=== PATIENT | female | born 1950 | race Caucasian/White ===

== ENCOUNTER → 2016-12-10 | Outpatient (CLI) | payer MEDICARE, MEDICAID ==
[~2016-12-10] MED LIST: AMIT25TA PO; CALC600T10 PO; CELE-19 PO; CYCL10TA PO; OXYC10TA12 PO; PARO30TA PO; VITMTA PO; VOLT1GEL24 TD; XANA0.5T PO
[2016-12-10 14:47] LABS: BASO % 0.6 % (0.0-1.0); EOS # 0.1 K/mm3 (0.0-0.50); EOS % 1.4 % (0.0-3.0); LARGE UNSTAINED CELL # 0.1 K/mm3 (0.0-0.4); LARGE UNSTAINED CELL % 2.2 % (0.0-4.0); LYMPH # 1.9 K/mm3 (1.5-4.5); LYMPH % 29.6 % (24.0-44.0); MEAN CORPUSCULAR HEMOGLOBIN 31.7 pg (27.0-33.0); MEAN CORPUSCULAR HGB CONC 32.3 g/dl (32.0-36.5); MONO # 0.3 K/mm3 (0.0-0.8); MONO % 4.2 % (0.0-5.0); NEUTROPHILS % 62.1 % (36.0-66.0); PLATELET COUNT, AUTOMATED 206 k/mm3 (150-450); RED CELL DISTRIBUTION WIDTH 12.7 % (11.5-14.5); WHITE BLOOD COUNT 6.4 K/mm3 (4.0-10.0)
[2016-12-10 15:16] LABS: ALBUMIN 3.9 GM/DL (3.2-5.2); ALBUMIN/GLOBULIN RATIO 1.15 (1.00-1.93); ALKALINE PHOSPHATASE 102 U/L (45-117); ALT/SGPT 25 U/L (12-78); ANION GAP 7 MEQ/L (8-16); AST/SGOT 24 U/L (15-37); BILIRUBIN,TOTAL 0.3 MG/DL (0.2-1.0); BLOOD UREA NITROGEN 13 MG/DL (7-18); CALCIUM LEVEL 8.6 MG/DL (8.8-10.2); CARBON DIOXIDE LEVEL 30 MEQ/L (21-32); CHLORIDE LEVEL 105 MEQ/L (98-107); CHOLESTEROL LEVEL 178 MG/DL (<200); CREATININE FOR GFR 0.62 MG/DL (0.55-1.02); GLOMERULAR FILTRATION RATE > 60.0 (>45); GLUCOSE, FASTING 83 MG/DL (80-110); POTASSIUM SERUM 4.3 MEQ/L (3.5-5.1); SODIUM LEVEL 142 MEQ/L (136-145); TOTAL PROTEIN 7.3 GM/DL (6.4-8.2); TRIGLYCERIDES LEVEL 36 MG/DL (<150)
== END ==
LOC: M LAB 13:51
PROVIDERS: ATTEND Emergency Medicine
DX: M13.0 Polyarthritis, unspecified (principal); R03.0 Elevated blood-pressure reading, without diagnosis of hypertension; F43.23 Adjustment disorder with mixed anxiety and depressed mood; Z79.899 Other long term (current) drug therapy

== ENCOUNTER 2018-06-24 09:46 | Day surgery (SDC) | payer MEDICARE, MEDICAID ==
[2018-06-24] MEDS: NS 1,000 ML IV (06:00)
[2018-06-24] MEDS ORDERED: PROPOFOL 200 MG/20 ML VIAL As Ordered (10:21)
[2018-06-24] MEDS ORDERED: LIDOCAINE 2% INJ 100 MG/5 ML SDV (FOR ANES.) As Ordered (10:21)
== END 2018-06-24 12:24 | disposition home or self-care (01) ==
LOC: M OPP 09:46
DX: Z12.11 Encounter for screening for malignant neoplasm of colon (principal); Z80.0 Family history of malignant neoplasm of digestive organs; K64.9 Unspecified hemorrhoids; K63.5 Polyp of colon; K62.1 Rectal polyp; K57.30 Diverticulosis of large intestine without perforation or abscess without bleeding; F17.210 Nicotine dependence, cigarettes, uncomplicated; F41.9 Anxiety disorder, unspecified; F32.9 Major depressive disorder, single episode, unspecified; F44.9 Dissociative and conversion disorder, unspecified; J45.909 Unspecified asthma, uncomplicated; M06.9 Rheumatoid arthritis, unspecified; Z79.891 Long term (current) use of opiate analgesic; Z79.899 Other long term (current) drug therapy; Z91.040 Latex allergy status; Z82.49 Family history of ischemic heart disease and other diseases of the circulatory system; Z80.3 Family history of malignant neoplasm of breast; Z90.710 Acquired absence of both cervix and uterus
CPT/HCPCS: 45385

== ENCOUNTER → 2018-08-07 | Outpatient (CLI) | payer MEDICARE, MEDICAID | LOC: M PAIN 13:15 | DX: M15.9 Polyosteoarthritis, unspecified (principal); M54.5 Low back pain; G89.29 Other chronic pain; E03.9 Hypothyroidism, unspecified; J44.9 Chronic obstructive pulmonary disease, unspecified; E55.9 Vitamin D deficiency, unspecified; F32.9 Major depressive disorder, single episode, unspecified; F41.9 Anxiety disorder, unspecified; M81.0 Age-related osteoporosis without current pathological fracture; F17.200 Nicotine dependence, unspecified, uncomplicated; Z79.899 Other long term (current) drug therapy; Z91.040 Latex allergy status; Z86.2 Personal history of diseases of the blood and blood-forming organs and certain disorders involving the immune mechanism | CPT/HCPCS: G0463 ==

== ENCOUNTER → 2018-08-12 | Outpatient (CLI) | payer MEDICARE, MEDICAID ==
[2018-08-12 16:29] LABS: ALBUMIN 4.1 GM/DL (3.2-5.2); ALBUMIN/GLOBULIN RATIO 1.21 (1.00-1.93); ALKALINE PHOSPHATASE 88 U/L (45-117); ALT/SGPT 23 U/L (12-78); ANION GAP 6 MEQ/L (8-16); AST/SGOT 29 U/L (7-37); BILIRUBIN,TOTAL 0.3 MG/DL (0.2-1.0); BLOOD UREA NITROGEN 11 MG/DL (7-18); CARBON DIOXIDE LEVEL 30 MEQ/L (21-32); CHLORIDE LEVEL 104 MEQ/L (98-107); CHOLESTEROL LEVEL 162 MG/DL (<200); CHOLESTEROL RISK RATIO 1.636 (<5); CREATININE FOR GFR 0.52 MG/DL (0.55-1.30); GLOMERULAR FILTRATION RATE > 60.0 (>45); GLUCOSE, FASTING 73 MG/DL (70-100); HDL CHOLESTEROL 99 MG/DL (>40); LDL CHOLESTEROL 52 MG/DL (<100); NON-HDL-C 63 MG/DL; POTASSIUM SERUM 3.7 MEQ/L (3.5-5.1); SODIUM LEVEL 140 MEQ/L (136-145); TOTAL PROTEIN 7.5 GM/DL (6.4-8.2); TRIGLYCERIDES LEVEL 53 MG/DL (<150)
[2018-08-12 16:31] LABS: TOTAL 25(OH) VITAMIN D 27.2 NG/ML (30.0-100.0)
== END ==
LOC: M LAB 15:13
DX: R03.0 Elevated blood-pressure reading, without diagnosis of hypertension (principal); E04.9 Nontoxic goiter, unspecified; E55.9 Vitamin D deficiency, unspecified; Z79.899 Other long term (current) drug therapy
CPT/HCPCS: 84443

== ENCOUNTER → 2018-08-14 | Outpatient (REF) | payer MEDICARE, MEDICAID ==
[2018-08-14 17:00] LABS: BASO # 0.1 10^3/uL (0.0-0.2); BASO % 0.6 % (0.0-1.0); EOS # 0.1 10^3/uL (0.0-0.50); EOS % 1.4 % (0.0-3.0); HEMATOCRIT 42.9 % (36.0-47.0); HEMOGLOBIN 14.1 g/dl (12.0-15.5); LYMPH # 2.8 10^3/uL (1.5-4.5); LYMPH % 34.6 % (24.0-44.0); MEAN CORPUSCULAR HEMOGLOBIN 33.3 pg (27.0-33.0); MEAN CORPUSCULAR HGB CONC 32.9 g/dl (32.0-36.5); MEAN CORPUSCULAR VOLUME 101.4 fl (80.0-96.0); MONO # 0.5 10^3/uL (0.0-0.8); MONO % 5.9 % (0.0-5.0); NEUTROPHILS # 4.5 10^3/uL (1.8-7.7); NEUTROPHILS % 56.5 % (36.0-66.0); PLATELET COUNT, AUTOMATED 214 10^3/uL (150-450); RED BLOOD COUNT 4.23 10^6/uL (4.00-5.40); RED CELL DISTRIBUTION WIDTH 12.8 % (11.5-14.5)
[2018-08-14 17:18] LABS: ALBUMIN 4.3 GM/DL (3.2-5.2); ALBUMIN/GLOBULIN RATIO 1.39 (1.00-1.93); ALKALINE PHOSPHATASE 96 U/L (45-117); ALT/SGPT 25 U/L (12-78); ANION GAP 5 MEQ/L (8-16); AST/SGOT 27 U/L (7-37); BILIRUBIN,TOTAL 0.5 MG/DL (0.2-1.0); BLOOD UREA NITROGEN 12 MG/DL (7-18); C REACTIVE PROTEIN QUANTITATIV < 0.30 MG/DL (0.00-0.30); CALCIUM LEVEL 9.3 MG/DL (8.8-10.2); CARBON DIOXIDE LEVEL 31 MEQ/L (21-32); CHLORIDE LEVEL 103 MEQ/L (98-107); CREATININE FOR GFR 0.58 MG/DL (0.55-1.30); GLOMERULAR FILTRATION RATE > 60.0 (>45); GLUCOSE, FASTING 75 MG/DL (70-100); POTASSIUM SERUM 4.8 MEQ/L (3.5-5.1); SODIUM LEVEL 139 MEQ/L (136-145); TOTAL PROTEIN 7.4 GM/DL (6.4-8.2); URIC ACID 4.5 MG/DL (2.6-6.0)
[2018-08-14 17:44] LABS: ERYTHROCYTE SEDIMENTATION RATE 6 mm/hr (0-30)
[2018-08-14 17:48] LABS: HEPATITIS B SURFACE ANTIGEN NEGATIVE (NEGATIVE); HIV 1&2 SCREEN CENTAUR NEGATIVE (NEGATIVE); TOTAL 25(OH) VITAMIN D 30.1 NG/ML (30.0-100.0)
[2018-08-14 17:48] LABS: HEPATITIS C VIRUS ABY INDEX < 0.0 INDEX (<0.8)
[2018-08-18 00:06] LABS: CYCLIC CITRULLINATED PEPTIDE 5 units (0-19)
== END ==
LOC: M SFHCLERA 14:00
DX: M19.90 Unspecified osteoarthritis, unspecified site (principal); Z79.899 Other long term (current) drug therapy
CPT/HCPCS: 84550

== ENCOUNTER → 2018-08-14 | Outpatient (CLI) | payer MEDICARE, MEDICAID | LOC: M LRY 14:10 | DX: M25.741 Osteophyte, right hand (principal); M25.742 Osteophyte, left hand; M19.041 Primary osteoarthritis, right hand; M19.042 Primary osteoarthritis, left hand; S63.280A Dislocation of proximal interphalangeal joint of right index finger, initial encounter; S63.282A Dislocation of proximal interphalangeal joint of right middle finger, initial encounter; S63.286A Dislocation of proximal interphalangeal joint of right little finger, initial encounter; S63.246A Subluxation of distal interphalangeal joint of right little finger, initial encounter; S63.243A Subluxation of distal interphalangeal joint of left middle finger, initial encounter; S63.245A Subluxation of distal interphalangeal joint of left ring finger, initial encounter; S63.247A Subluxation of distal interphalangeal joint of left little finger, initial encounter; S63.283A Dislocation of proximal interphalangeal joint of left middle finger, initial encounter; S63.285A Dislocation of proximal interphalangeal joint of left ring finger, initial encounter; X58.XXXA Exposure to other specified factors, initial encounter; Y92.89 Other specified places as the place of occurrence of the external cause; R93.7 Abnormal findings on diagnostic imaging of other parts of musculoskeletal system | CPT/HCPCS: 73030; 84550 ==

== ENCOUNTER → 2019-02-02 | Outpatient (CLI) | payer MEDICARE, MEDICAID ==
[~2019-02-02] MED LIST changes: -CALC600T10 PO; +CALC600T31 PO; -CELE-19 PO; +CELE1CAP4 PO; +VOLT1GEL15 TD; -VOLT1GEL24 TD
--- NOTE | 2019-02-02 14:06 | REPMRS ---
Patient History The patient states she has not had a clinical breast exam in over a year. Patient is postmenopausal and is nulliparous. Family history of breast cancer in paternal grandmother, colorectal cancer in brother, breast cancer at age 50 in sister, breast cancer at age 50 in sister. 3D TOMOSYNTHESIS WAS PERFORMED. Digital Mammo Screening Bilat: February 02, 2019 - Exam #: [id number] Bilateral CC and MLO view(s) were taken. Technologist: Gabby Taylor, Technologist No prior studies available for comparison. FINDINGS: The breast tissue is heterogeneously dense. This may lower the sensitivity of mammography. There is no evidence of cancer on this mammogram. Assessment: BI-RADS/ACR category 2 mammogram. Benign Findings. Recommendation Routine screening mammogram of both breasts in 1 year (for women over age 40). This mammogram was interpreted with the aid of an FDA-approved computer-aided dectection system. Electronically Signed By: Artem Parisi MD 02/02/19 0117
== END ==
LOC: M RAD 13:14
PROVIDERS: ATTEND Family Medicine
DX: Z12.31 Encounter for screening mammogram for malignant neoplasm of breast (principal); M13.0 Polyarthritis, unspecified; M51.36 Other intervertebral disc degeneration, lumbar region; E55.9 Vitamin D deficiency, unspecified; Z80.3 Family history of malignant neoplasm of breast; Z80.0 Family history of malignant neoplasm of digestive organs

== ENCOUNTER → 2019-02-04 | Outpatient (CLI) | payer MEDICARE, MEDICAID ==
[~2019-02-04] MED LIST changes: +CALC600T6 PO; +DRIS50003 PO; +DULO1CAP3 PO; +VENTAER INH
--- NOTE | 2019-02-09 09:14 | DEXA ---
AP SPINE L1 - L4 0.957 -1.9 -0.3 LT FEMUR TOTAL 0.581 -3.4 -2.1 LT NECK 0.591 -3.2 -1.6 RT FEMUR TOTAL 0.610 -3.2 -1.8 RT NECK 0.650 -2.8 -1.8 TOTAL BODY TOTAL RIGHT FOREARM RADIUS 33% 0.470 -4.6 -3.0 COMMENTS: There is low bone density of the spine. There is osteoporosis of the hips. Osteoporosis of the right forearm. FOLLOW-UP: Recommendation for the next bone density exam: 2 years. MISHA
== END ==
LOC: M WHC 12:47
PROVIDERS: ATTEND Family Medicine
DX: Z12.39 Encounter for other screening for malignant neoplasm of breast (principal); M81.0 Age-related osteoporosis without current pathological fracture; M13.0 Polyarthritis, unspecified; M85.88 Other specified disorders of bone density and structure, other site; M51.36 Other intervertebral disc degeneration, lumbar region; E55.9 Vitamin D deficiency, unspecified

== ENCOUNTER 2019-02-09 13:10 | Inpatient (IN) | payer MEDICARE, MEDICAID ==
[~2019-02-09] VITALS: Ht 147.3 cm; Wt 51.7 kg
[~2019-02-09 13:10] MED LIST changes: -CALC600T6 PO; -DRIS50003 PO; -DULO1CAP3 PO; -VENTAER INH
--- NOTE | 2019-02-09 15:02 | REP ---
Left femur: Two views. History: Bony tenderness. Findings: AP and lateral views of the left femur show diffuse osteopenia. No fracture or subluxation is seen. No erosive changes seen. Impression: Negative left femur radiographs. Some diffuse osteopenia. Electronically Signed by Joce Valenzuela MD 02/09/2019 03:12 P
--- NOTE | 2019-02-09 15:06 | REP ---
LEFT HIP: Two views. HISTORY: Bony tenderness. FINDINGS: There is diffuse osteopenia. AP and frog-leg views of the left hip demonstrate smooth rounded femoral head and intact hip joint space. There is no evidence of proximal femur fracture. There is a subtle irregularity of the superior pubic ramus near the acetabulum which should be correlated with clinical signs and symptoms. I cannot exclude a superior pubic ramus fracture in the left hemipelvis. IMPRESSION: Possible left superior pubic ramus fracture. Diffuse osteopenia. No proximal femur fracture seen. Electronically Signed by Joce Valenzuela MD 02/09/2019 03:12 P
[2019-02-09] MEDS ORDERED: NORCO, ANEXSIA 5/325MG TABLET (HYDROcodone/ACETAMINOPHEN) PO ONE (15:30)
[2019-02-09] MEDS ORDERED: MORPHINE 2 MG/ML 1ML SYRINGE (J2270) IV ONE (17:15)
--- NOTE | 2019-02-09 17:16 | REP ---
Clinical: Trauma. Rule out fracture. Technique: Axial noncontrast images through the pelvis with coronal and sagittal re-formations. Findings: There is a very subtle nondisplaced fracture involving the left superior pubic ramus (image 58) as well as minimally displaced fracture of the mid inferior pubic ramus (image 73). A small adjacent hematoma just lateral to the fractured inferior pubic ramus is suggested with subtle gas. Visualized small large bowel is unremarkable. Bladder is normal. Colonic and sigmoid diverticulosis noted. The patient is status post hysterectomy. Impression: Left superior and inferior pubic rami fracture as detailed above. Electronically Signed by Fernando Jeff MD 02/09/2019 05:07 P
[2019-02-09 18:14] LABS: HEMOGLOBIN 14.4 g/dl (12.0-15.5); MEAN CORPUSCULAR HEMOGLOBIN 33.3 pg (27.0-33.0); MEAN CORPUSCULAR HGB CONC 33.5 g/dl (32.0-36.5); MEAN CORPUSCULAR VOLUME 99.5 fl (80.0-96.0); PLATELET COUNT, AUTOMATED 215 10^3/uL (150-450); RED BLOOD COUNT 4.32 10^6/uL (4.00-5.40); WHITE BLOOD COUNT 10.3 10^3/uL (4.0-10.0)
[2019-02-09] MEDS ORDERED: VENTAER INH (18:16)
[2019-02-09] MEDS ORDERED: DRIS50003 PO (18:16)
[2019-02-09] MEDS ORDERED: DULO1CAP3 PO (18:16)
[2019-02-09] MEDS ORDERED: CALC600T6 PO (18:16)
[2019-02-09 18:24] LABS: INR 0.92; PROTHROMBIN TIME 12.5 SECONDS (12.1-14.4)
[2019-02-09 18:34] LABS: BLOOD UREA NITROGEN 8 MG/DL (7-18); CARBON DIOXIDE LEVEL 29 MEQ/L (21-32); CHLORIDE LEVEL 105 MEQ/L (98-107); CREATININE FOR GFR 0.45 MG/DL (0.55-1.30); GLOMERULAR FILTRATION RATE > 60.0 (>45); GLUCOSE, FASTING 100 MG/DL (70-100); POTASSIUM SERUM 4.1 MEQ/L (3.5-5.1); SODIUM LEVEL 139 MEQ/L (136-145)
[2019-02-09] MEDS ORDERED: MOM 30ML SUSPENSION UDC PO PRN (19:00)
--- NOTE | 2019-02-09 21:16 | HPE ---
DATE OF ADMISSION: 02/09/2019 PRIMARY CARE PROVIDER: Seema Jimeenz MD CHIEF COMPLAINT: Left groin pain. HISTORY OF PRESENT ILLNESS: The patient is a 68-year-old female with known osteoporosis who has a history of pathologic fracture after a fall on her left hand years ago as well as fairly significant polyarticular osteoarthritis. Seen previously by rheumatology who tells me that on she was attempting to catch her dogs who were running loose and she was squatting down low to the ground and she rolled to try and catch it. She did not fall but she did have some turning movements and jerkiness trying to catch the dog at which point she immediately felt some pain in her left groin. Since then the pain has progressively worsened to the point that she is no longer able to ambulate far at all. She has difficulty getting up and going to the bathroom. She tells me that she did not have any paresthesia, no bladder or bowel incontinence. No fevers. No chest pressure, shortness of breath, nausea, vomiting or diarrhea. There has been no loss of consciousness or syncopal episodes associated with this. PAST MEDICAL HISTORY: Polyarticular osteoarthritis. Osteoporosis. Depression and anxiety. Hypothyroidism. Retinal detachment. COPD. Lyme disease. ALLERGIES: LATEX. NATURAL RUBBERS. SOCIAL HISTORY: She lives alone. She has 4 dogs and 5 cats. She is an avid smoker, at least 1 pack per day for longer than she wishes to quantify. She tells me that she is [place] and also drinks at least 2 alcoholic beverages a day. FAMILY HISTORY: Noncontributory. REVIEW OF SYSTEMS: Negative other than HPI. PAST SURGICAL HISTORY: Hysterectomy. Tonsil and adenoidectomy. Left neck hematoma extraction. Retinal laser surgery. "Left wrist repair". HOME MEDICATIONS: - calcium with vitamin D 600-400 one tablet daily - vitamin D 50,000 units once a week - Ventolin HFA 108 mcg 2 puffs inhaled every 4 hours as needed shortness of breath - voltaren 2 grams transdermally daily as needed for pain - Xanax 1/2 mg twice a day as needed anxiety - amitriptyline 25 mg by mouth at bedtime - Celebrex 200 mg by mouth every p.m. - cyclobenzaprine 10 mg twice a day as needed spasm - duloxetine 50 mg by mouth daily - multivitamin 1 tablet daily - oxycodone 10 mg every 8 hours as needed pain OBJECTIVE: VITAL SIGNS: Temperature 99.3, heart rate 102, respiratory rate 18, blood pressure 106/71. She is a frail elderly female with chronic bone deformities throughout, laying flat on the stretcher. She does not appear to be in any acute distress. HEENT: Cranial nerves appear grossly intact. She has moist mucous membranes. No elevation of JVP. CARDIOVASCULAR: S1, S2, regular. RESPIRATORY EXAM: Clear. ABDOMEN: Benign. EXTREMITIES: She has chronic deformity of the left wrist from previous fracture. Chronic swollen joints MTP and PCPs bilaterally. Tenderness and decreased range of motion secondary to pain at the left hip. No clubbing, cyanosis or edema. LABORATORY STUDIES: WBC 10.3, hemoglobin 14.4, platelet count 215. Chemistry panel: Sodium 139, potassium 4.1, chloride 105, bicarbonate 29, BUN 8, creatinine 0.4. INR 0.9. Patient did have a pelvic CT which revealed left superior and inferior pubic rami fractures. She did have a femur x-ray that revealed negative left femur radiographs but diffuse osteoporosis. She also had a hip x-ray that revealed possible left superior pubic rami fracture and diffuse osteopenia. ASSESSMENT AND PLAN: This is a 68-year-old female with pubic rami fracture. PROBLEMS: 1. Pubic rami fracture secondary to significant osteoporosis. I will have orthopedic surgery see her. They have verbally over the phone recommended activity as tolerated, provide her with a diet. If we are unable to control her pain will consider pain management consultation tomorrow when that service becomes available once again. Physical therapy (PT)/occupational therapy (OT). Med-surg admission. I think she will probably benefit from superintendent terminal bisphosphonate use in addition to calcium and vitamin D supplementation as well as tobacco cessation. 2. Tobacco abuse. Counseling provided. 3. Alcohol abuse. Monitor for withdrawal symptoms. Provided with thiamine, folic acid and multivitamin and check Clinical [place] Withdrawal Assessment (CIWA). 4. Hypothyroidism. I will check a TSH. She is not on any thyroid replacement therapy at this time. 5. Anxiety. Continue with alprazolam and amitriptyline. The patient is on duloxetine. 6. Chronic osteoarthritic pain. Continue with Celebrex, cyclobenzaprine. 7. COPD. She is at her baseline respiratory status and not requiring any inhalers at this time. DISPOSITION: Admit to the medical-surgical floor.
[2019-02-09 22:00] VITALS: BP 141/96
--- NOTE | 2019-02-09 22:29 | HPE ---
DATE OF ADMISSION: 02/09/2019 CHIEF COMPLAINT: Left groin pain. HISTORY OF PRESENT ILLNESS: The patient states that approximately 5 days ago she was wrestling with her dogs and rolled on her side and felt a sudden pain in her left groin area. Following that, she was able to ambulate but did present to the emergency department today due to persistent pain in the left groin. She has a history significant history for osteoporosis, and she has no other active orthopedic complaints. I was consulted by the inpatient service for evaluation of left superior and inferior pubic rami fractures. PAST MEDICAL HISTORY: As above, also depression, anxiety, chronic obstructive pulmonary disease (COPD), Lyme disease, polyarticular osteoarthritis, hypothyroidism. SOCIAL HISTORY: She does live alone locally. She is a heavy smoker and does drink alcoholic beverages daily. REVIEW OF SYSTEMS: No recent fevers, chills, nausea, vomiting, diarrhea or constipation. PAST SURGICAL HISTORY: Significant for a left wrist open reduction internal fixation, hysterectomy, tonsil and adenoidectomy, left neck hematoma extraction and retinal laser surgery. HOME MEDICATIONS: Home medications are available for review in the medical record. OBJECTIVE: Awake, alert and oriented times three, well-appearing female, in no acute distress. Head is normocephalic, atraumatic. Extraocular muscles are intact. Cardiovascular: Regular rate and rhythm. Pulmonary: No increased work of breathing. She has pain referring to the left groin area. The pelvis is stable. Bilateral lower extremities: There is negative log roll, negative heel tap. She has grossly 5/5 strength with sensation intact to light touch and normal symmetrical reflexes, L2-S1 bilaterally. She is able to move her bilateral knees, feet and ankles in a pain-free manner. Dorsiflexion and plantar flexion of bilateral feet is intact. In the bilateral upper extremities, she is able to move her extremities freely, bring her hands behind her head, and she does have chronic deformities of the fingers and the left wrist as well. Cervical spine range of motion is pain free and at baseline. IMAGING: CT scan of the pelvis shows stable appearing and minimally displaced superior and inferior pubic rami fractures. Chronic degenerative changes also noted in the lumbar spine and bilateral hips. ASSESSMENT: A 68-year-old female with stable pubic rami fractures. PLAN: Given that she has been ambulating on these fractures, clearly they are stable, and I do recommend physical therapy to evaluate and treat with recommendation of weightbearing as tolerated, may require pain management and mobilization aids, such as a walker if required. No surgical intervention is indicated at this time. I do recommend medical management and evaluation for osteoporosis. She may followup in the orthopedic clinic in 1-2 weeks or earlier as needed for any worsening or for any other concerns. All of her questions were answered, and she is satisfied with the treatment at this time. Certainly, if needed, we could reevaluate the patient if she has significant difficulty mobilizing for example. MISHA
[2019-02-09] MEDS: AMITRIPTYLINE 25 MG TAB PO SCH (23:31)
[2019-02-09] MEDS: ENOXAPARIN 40 MG/0.4 ML SYRINGE (J1650) SC SCH (23:31)
[2019-02-09] MEDS: CelecoXIB (CeleBREX) 100 MG CAP PO SCH (23:31)
[2019-02-09] MEDS: oxyCODONE 5MG TAB PO PRN (23:32)
[2019-02-10 06:00] VITALS: BP 138/71
[2019-02-10] MEDS: MULTIVITAMINS/MINERALS THERAP 1 TAB PO SCH (08:50)
[2019-02-10] MEDS: DULoxetine 30 MG CAP (CYMBALTA) PO SCH (08:50)
[2019-02-10] MEDS: CYCLOBENZAPRINE 10 MG TAB PO PRN (08:50)
[2019-02-10] MEDS: FOLIC ACID 1 MG TAB PO SCH (08:50)
[2019-02-10] MEDS: THIAMINE 100 MG TAB PO SCH (08:50)
[2019-02-10] MEDS: oxyCODONE 5MG TAB PO PRN ×2 (08:51→20:33)
[2019-02-10 09:25] LABS: HEMATOCRIT 45.2 % (36.0-47.0); HEMOGLOBIN 14.3 g/dl (12.0-15.5); MEAN CORPUSCULAR HEMOGLOBIN 32.5 pg (27.0-33.0); MEAN CORPUSCULAR HGB CONC 31.6 g/dl (32.0-36.5); MEAN CORPUSCULAR VOLUME 102.7 fl (80.0-96.0); PLATELET COUNT, AUTOMATED 230 10^3/uL (150-450); WHITE BLOOD COUNT 8.1 10^3/uL (4.0-10.0)
[2019-02-10 09:42] LABS: BLOOD UREA NITROGEN 8 MG/DL (7-18); CARBON DIOXIDE LEVEL 32 MEQ/L (21-32); CHLORIDE LEVEL 105 MEQ/L (98-107); CREATININE FOR GFR 0.43 MG/DL (0.55-1.30); GLOMERULAR FILTRATION RATE > 60.0 (>45); GLUCOSE, FASTING 80 MG/DL (70-100); POTASSIUM SERUM 4.3 MEQ/L (3.5-5.1); SODIUM LEVEL 141 MEQ/L (136-145)
[2019-02-10 10:03] VITALS: BP 138/71
[2019-02-10] MEDS: NICOTINE 21MG/24HR 1 EA TRANSDERMAL TD SCH (11:36)
[2019-02-10] MEDS: ALPRAZolam 0.5 MG TAB PO PRN (13:54)
[2019-02-10] MEDS: ACETAMINOPHEN TAB 650MG DOSE (2X325MG) PO PRN (13:54)
[2019-02-10 14:00] VITALS: BP 119/89
--- NOTE | 2019-02-10 15:38 | IPNPDOC ---
Date Seen The patient was seen on 02/10/19. Progress Note SUBJECTIVE: Patient reports feeling better but still significant pain and requesting pain management cons. OBJECTIVE PHYSICAL EXAMINATION: VITAL SIGNS: Please see below. GENERAL: frail elderly woman laying in bed nad HEENT: Cranial nerves grossly intact moist pedis membranes. CARDIOVASCULAR: S1-S2 regular RESPIRATORY: Clear to auscultation bilaterally. ABDOMINAL: Bowel sounds present abdomen soft EXTREMITIES: Chronic deformity of the left wrist and joints of the DIPs and PIPs bilaterally, decreased range of motion of the left hip LABORATORY DATA, IMAGING STUDIES, MICROBIOLOGY: Please see below. DVT prophylaxis ordered?: Lovenox ASSESSMENT AND PLAN: This is a 68-year-old female with pubic rami fracture. PROBLEMS: 1. Pubic rami fracture secondary to significant osteoporosis. Orthopedic surgery consultation greatly appreciated. Continue with. Physical therapy (PT)/occupational therapy (OT). I think she will probably benefit from senior living bisphosphonate use in addition to calcium and vitamin D supplementation as well as tobacco cessation. Pain management consult called 2. Tobacco abuse. Counseling provided. 3. Alcohol abuse. Monitor for withdrawal symptoms. Provided with thiamine, folic acid and multivitamin and check Clinical [place] Withdrawal Assessment (CIWA). 4. Hypothyroidism. Mildly elevated consider rechecking after acute medical illness has resolved in the outpatient setting 5. Anxiety. Continue with alprazolam and amitriptyline. The patient is on duloxetine. 6. Chronic osteoarthritic pain. Continue with Celebrex, cyclobenzaprine. 7. COPD. She is at her baseline respiratory status and not requiring any inhalers at this time. DISPOSITION: Pending PT and pain control VS, I&O, 24H, [facility] Vital Signs/I&O Vital Signs Date Time Temp Pulse Resp B/P (MAP) Pulse Ox O2 Delivery O2 Flow Rate FiO2 02/10/19 14:00 98.6 64 18 119/89 (99) 96 02/09/19 21:34 Room Air I&O- Last 24 Hours up to 6 AM 02/10/19 06:00 Intake Total 600 ml Output Total 1300 ml Balance -700 ml Laboratory Data 24H LABS Laboratory Tests 2 02/09/19 18:03: Nucleated Red Blood Cells % (auto) 0.0, Prothrombin Time 12.5, Prothromb Time International Ratio 0.92, Anion Gap 5L, Glomerular Filtration Rate > 60.0, Blood Urea Nitrogen 8, Creatinine 0.45L, Sodium Level 139, Potassium Level 4.1, Chloride Level 105, Carbon Dioxide Level 29, Calcium Level 9.0 02/10/19 08:08: Nucleated Red Blood Cells % (auto) 0.0, Anion Gap 4L, Glomerular Filtration Rate > 60.0, Blood Urea Nitrogen 8, Creatinine 0.43L, Sodium Level 141, Potassium Level 4.3, Chloride Level 105, Carbon Dioxide Level 32, Calcium Level 9.0, Thyroid Stimulating Hormone (TSH) 6.870H CBC/BMP Laboratory Tests 02/09/19 18:03 Red Blood Count 4.32, Mean Corpuscular Volume 99.5 H, Mean Corpuscular Hemoglobin 33.3 H, Mean Corpuscular Hemoglobin Concent 33.5, Red Cell Distribution Width 12.8, Calcium Level 9.0 02/10/19 08:08 Red Blood Count 4.40, Mean Corpuscular Volume 102.7 H, Mean Corpuscular H emoglobin 32.5, Mean Corpuscular Hemoglobin Concent 31.6 L, Red Cell Distribution Width 12.9, Calcium Level 9.0 ENA YANG MD Feb 10, 2019 15:38
--- NOTE | 2019-02-10 16:55 | CR ---
DATE OF CONSULTATION: 02/09/2019 This patient is a 68-year-old female with a known history of osteoporosis. She was referred to pain management after sustaining left groin pain while twisting yesterday as she was trying to catch her dogs. She denies falling. This patient says her pain today is along her entire back and says the pain in the groin has lessened. She is prescribed oxycodone 10 mg every 8 hours. She was taking up to six tablets last year, given to her by her primary care provider (PCP). She says her PCP does not want her taking large doses, but feels four tablets in 24 hours will help her and she will be able to move around more. On examination, the patient was seated in hospital chair looking very comfortable. She does appear older than stated age. Her heart and lungs were clear. She was not able to get up and move around for further examination. My suggestion would be to increase her oxycodone 10 mg to every 6 hours, maximum daily dose of four tablets in 24 hours. I have advised this patient this is only for her while she is an inpatient and upon discharge, she will need to discuss her pain management with her primary care doctor. Thank you. Kind regards, AMIE [facility]
[2019-02-10 20:30] VITALS: BP 112/83
[2019-02-10] MEDS: guaiFENesin SYRUP 200 MG/10 ML UDC PO PRN (20:32)
[2019-02-10] MEDS: CelecoXIB (CeleBREX) 100 MG CAP PO SCH (20:32)
[2019-02-10] MEDS: AMITRIPTYLINE 25 MG TAB PO SCH (20:33)
[2019-02-10] MEDS: ENOXAPARIN 40 MG/0.4 ML SYRINGE (J1650) SC SCH (20:33)
[2019-02-10 22:00] VITALS: BP 112/83
[2019-02-11] MEDS: ACETAMINOPHEN TAB 650MG DOSE (2X325MG) PO PRN ×2 (01:34→09:32)
[2019-02-11] MEDS: ALPRAZolam 0.5 MG TAB PO PRN (01:34)
[2019-02-11] MEDS: CYCLOBENZAPRINE 10 MG TAB PO PRN (03:27)
[2019-02-11] MEDS: guaiFENesin SYRUP 200 MG/10 ML UDC PO PRN ×3 (03:27→22:01)
[2019-02-11] MEDS: oxyCODONE 5MG TAB PO PRN ×3 (05:35→22:02)
[2019-02-11 06:00] VITALS: BP 120/89
[2019-02-11 06:57] LABS: HEMATOCRIT 40.2 % (36.0-47.0); HEMOGLOBIN 13.1 g/dl (12.0-15.5); MEAN CORPUSCULAR HEMOGLOBIN 32.8 pg (27.0-33.0); MEAN CORPUSCULAR HGB CONC 32.6 g/dl (32.0-36.5); MEAN CORPUSCULAR VOLUME 100.5 fl (80.0-96.0); PLATELET COUNT, AUTOMATED 209 10^3/uL (150-450); WHITE BLOOD COUNT 8.1 10^3/uL (4.0-10.0)
[2019-02-11 07:27] LABS: BLOOD UREA NITROGEN 9 MG/DL (7-18); CALCIUM LEVEL 9.1 MG/DL (8.8-10.2); CARBON DIOXIDE LEVEL 29 MEQ/L (21-32); CHLORIDE LEVEL 109 MEQ/L (98-107); CREATININE FOR GFR 0.44 MG/DL (0.55-1.30); GLOMERULAR FILTRATION RATE > 60.0 (>45); GLUCOSE, FASTING 95 MG/DL (70-100); POTASSIUM SERUM 3.6 MEQ/L (3.5-5.1); SODIUM LEVEL 142 MEQ/L (136-145)
[2019-02-11 08:43] VITALS: BP 113/79
[2019-02-11] MEDS: THIAMINE 100 MG TAB PO SCH (09:32)
[2019-02-11] MEDS: FOLIC ACID 1 MG TAB PO SCH (09:32)
[2019-02-11] MEDS: MULTIVITAMINS/MINERALS THERAP 1 TAB PO SCH (09:33)
[2019-02-11] MEDS: DULoxetine 30 MG CAP (CYMBALTA) PO SCH (09:33)
[2019-02-11] MEDS: NICOTINE 21MG/24HR 1 EA TRANSDERMAL TD SCH (09:34)
[2019-02-11] MEDS ORDERED: ALBUTEROL 90 MCG/ACT 8GM HFA INHALER INH PRN (11:00)
[2019-02-11 14:00] VITALS: BP 127/79
--- NOTE | 2019-02-11 18:39 | IPNPDOC ---
Date Seen The patient was seen on 02/11/19. Progress Note SUBJECTIVE: Patient reports feeling better and wants to ensure she will go home with pain meds when she is ready, otherwise no complaints OBJECTIVE PHYSICAL EXAMINATION: VITAL SIGNS: Please see below. GENERAL: frail elderly woman sitting in a chair HEENT: Cranial nerves grossly intact moist mucous membranes. CARDIOVASCULAR: S1-S2 regular RESPIRATORY: Clear to auscultation bilaterally. ABDOMINAL: Bowel sounds present abdomen soft EXTREMITIES: Chronic deformity of the left wrist and joints of the DIPs and PIPs bilaterally, decreased range of motion of the left hip LABORATORY DATA, IMAGING STUDIES, MICROBIOLOGY: Please see below. DVT prophylaxis ordered?: Lovenox ASSESSMENT AND PLAN: This is a 68-year-old female with pubic rami fracture. PROBLEMS: 1. Pubic rami fracture secondary to significant osteoporosis. Orthopedic surgery consultation greatly appreciated. Continue with. Physical therapy (PT)/occupational therapy (OT). I think she will probably benefit from superintendent container terminal bisphosphonate use in addition to calcium and vitamin D supplementation as well as tobacco cessation. Pain management consult appreciated recommendations followed. 2. Tobacco abuse. Counseling provided. 3. Alcohol abuse. Monitor for withdrawal symptoms none exhibited thus far. Provided with thiamine, folic acid and multivitamin and check Clinical [place] Withdrawal Assessment (CIWA). 4. Hypothyroidism. Mildly elevated consider rechecking after acute medical illness has resolved in the outpatient setting 5. Anxiety. Continue with alprazolam and amitriptyline. The patient is on duloxetine. 6. Chronic osteoarthritic pain. Continue with Celebrex, cyclobenzaprine. 7. COPD. She is at her baseline respiratory status and not requiring any inhalers at this time. DISPOSITION: Pending PT/OT clearance VS, I&O, 24H, [facility] Vital Signs/I&O Vital Signs Date Time Temp Pulse Resp B/P (MAP) Pulse Ox O2 Delivery O2 Flow Rate FiO2 02/11/19 15:30 18 02/11/19 14:00 98.7 79 127/79 (95) 97 02/09/19 21:34 Room Air I&O- Last 24 Hours up to 6 AM 02/11/19 06:00 Intake Total 2040 ml Output Total 600 ml Balance 1440 ml Laboratory Data 24H LABS Laboratory Tests 2 02/11/19 06:39: Nucleated Red Blood Cells % (auto) 0.0, Anion Gap 4L, Glomerular Filtration Rate > 60.0, Blood Urea Nitrogen 9, Creatinine 0.44L, Sodium Level 142, Potassium Level 3.6, Chloride Level 109H, Carbon Dioxide Level 29, Calcium Level 9.1 CBC/BMP Laboratory Tests 02/11/19 06:39 Red Blood Count 4.00, Mean Corpuscular Volume 100.5 H, Mean Corpuscular Hemoglobin 32.8, Mean Corpuscular Hemoglobin Concent 32.6, Red Cell Distribution Width 12.6, Calcium Level 9.1 ENA YANG MD Feb 11, 2019 18:39
[2019-02-11] MEDS: ENOXAPARIN 40 MG/0.4 ML SYRINGE (J1650) SC SCH (20:25)
[2019-02-11] MEDS: CelecoXIB (CeleBREX) 100 MG CAP PO SCH (20:25)
[2019-02-11] MEDS: AMITRIPTYLINE 25 MG TAB PO SCH (20:25)
[2019-02-11 22:00] VITALS: BP 131/99
[2019-02-11 23:05] VITALS: BP 131/99
[2019-02-12 06:00] VITALS: BP 137/88
[2019-02-12 06:10] VITALS: BP 137/88
[2019-02-12 06:43] LABS: HEMATOCRIT 44.1 % (36.0-47.0); MEAN CORPUSCULAR HEMOGLOBIN 32.6 pg (27.0-33.0); MEAN CORPUSCULAR HGB CONC 31.7 g/dl (32.0-36.5); MEAN CORPUSCULAR VOLUME 102.8 fl (80.0-96.0); PLATELET COUNT, AUTOMATED 213 10^3/uL (150-450); RED BLOOD COUNT 4.29 10^6/uL (4.00-5.40); WHITE BLOOD COUNT 6.4 10^3/uL (4.0-10.0)
[2019-02-12 07:14] LABS: BLOOD UREA NITROGEN 7 MG/DL (7-18); CALCIUM LEVEL 9.3 MG/DL (8.8-10.2); CARBON DIOXIDE LEVEL 32 MEQ/L (21-32); CHLORIDE LEVEL 107 MEQ/L (98-107); CREATININE FOR GFR 0.48 MG/DL (0.55-1.30); GLOMERULAR FILTRATION RATE > 60.0 (>45); GLUCOSE, FASTING 92 MG/DL (70-100); SODIUM LEVEL 142 MEQ/L (136-145)
[2019-02-12] MEDS: NICOTINE 21MG/24HR 1 EA TRANSDERMAL TD SCH (07:45)
[2019-02-12] MEDS: THIAMINE 100 MG TAB PO SCH (07:46)
[2019-02-12] MEDS: oxyCODONE 5MG TAB PO PRN ×2 (07:46→13:41)
[2019-02-12] MEDS: FOLIC ACID 1 MG TAB PO SCH (07:46)
[2019-02-12] MEDS: MULTIVITAMINS/MINERALS THERAP 1 TAB PO SCH (07:47)
[2019-02-12] MEDS: DULoxetine 30 MG CAP (CYMBALTA) PO SCH (07:47)
[2019-02-12] MEDS ORDERED: NICO21PAT TD (10:25)
[2019-02-12] MEDS ORDERED: THIA100TA PO (10:25)
[2019-02-12] MEDS ORDERED: FOLI1TAB11 PO (10:25)
[2019-02-12] MEDS ORDERED: ROXI1TAB2 PO (10:31)
[2019-02-12] MEDS: ALPRAZolam 0.5 MG TAB PO PRN (13:41)
--- NOTE | 2019-02-12 18:33 | DSES ---
DATE OF ADMISSION: 02/09/2019 DATE OF DISCHARGE: 02/12/2019 DISCHARGE DIAGNOSIS: Pubic rami fracture. SECONDARY DIAGNOSES: 1. Osteoporosis. 2. Tobacco abuse. 3. Alcohol abuse. 4. Hypothyroidism. 5. Anxiety. 6. Chronic osteoarthritic pain. 7. Chronic obstructive pulmonary disease (COPD). CONSULTATIONS: Pain management, orthopedic surgery. HOSPITAL COURSE: This is a 68-year-old female who was attempting to catch one of her dogs who was running away. She did a sudden movement and nearly fell. Following this, she began to develop left groin pain, which progressively worsened to the point she could no longer walk on it, prompting her to present to the emergency room. She was seen by orthopedic surgery, who recommended no surgical intervention, recommended weight bearing as tolerated, physical therapy (PT), and followup in the orthopedic clinic in 1 to 2 weeks. The patient was seen by pain management, who did titrate up her chronic opiates at home. She previously followed in a pain clinic. She did continue aspirin at an increasing dose during her stay. We deferred pain management to the pain management service. SUBJECTIVE: Today, the patient tells me that she is feeling well and would like to go home. OBJECTIVE: VITAL SIGNS: Temperature 98.1, pulse 90, respiratory rate 19, blood pressure 132/88, oxygen saturation 98% on room air. GENERAL: She is a frail, elderly, female sitting up in a chair. She does not appear in acute distress, awake, alert, oriented times three. She is speaking in complete sentences. HEENT: Cranial nerves II-XII are grossly intact. She has moist mucous membranes. No elevation of central venous pressure. CARDIOVASCULAR: S1, S2. Regular. RESPIRATORY EXAM: Actually fairly clear. ABDOMINAL EXAM: Bowel sounds present. The abdomen is soft and nontender. EXTREMITIES: No clubbing, cyanosis or edema. She has a chronic deformity of the left wrist, as well as DIPs and PIPs bilaterally. LABORATORY STUDIES: WBC 6.4, hemoglobin 14, platelet count 213. Chemistry panel: Sodium 142, potassium 4.0, chloride 107, bicarbonate 32, BUN 7, creatinine 0.4. IMAGING: She did have a pelvic CT that revealed inferior and superior pubic rami fracture. ASSESSMENT AND PLAN: This is a 68-year-old female with inferior and superior pubic rami fracture. 1. Pubic rami fracture secondary to osteoporosis. Orthopedic surgery consulted. The patient will require outpatient followup with them in the next 1 to 2 weeks. She is cleared by physical therapy (PT) and occupational therapy (OT). I think that she would benefit from a ad terminal makeup operator biphosphonate use on the outpatient setting. Continue with calcium and vitamin D. Tobacco cessation. Pain management consult appreciated as well. She will be discharged on these medications for several days only. 2. Tobacco abuse. Cessation again provided. 3. Alcohol abuse. No signs or symptoms of withdrawal while here. Continue thiamine, folic acid, multivitamin. 4. Hypothyroidism. Mildly elevated. Consider rechecking her TSH in the outpatient setting. 5. Anxiety. Continue with alprazolam and amitriptyline, as well as duloxetine. 6. Chronic osteoarthritic pain. She was continued on Celebrex and cyclobenzaprine in addition to her titrated up narcotic dose. 7. Chronic obstructive pulmonary disease (COPD). She was at her baseline respiratory status. DISPOSITION: She is discharged home. She is at her functional baseline. Home care referral placed. She is to followup with her primary care provider in 7 days, orthopedics within 2 weeks. Her activity is as tolerated. Her diet is as prior to admission. MEDICATIONS: At the time of discharge: - folic acid 1 mg daily - Nicoderm patch transdermally daily - Roxicodone 10 mg every 3 hours as needed for pain - thiamine 100 mg daily - Ventolin HFA 280 mcg two puffs inhaled every 4 hours as needed for shortness of breath - Xanax 0.5 mg twice a day - amitriptyline 25 mg at night - calcium and vitamin D 600/400 one tablet daily - Celebrex 200 mg every evening - cyclobenzaprine 10 mg twice a day as needed for spasm - duloxetine 60 mg daily - multivitamin one tablet daily - vitamin D 50,000 units weekly - Voltaren topical 1% gel 2 grams transdermally daily as needed for pain 45 minutes was spent organizing disposition.
== END 2019-02-12 14:35 | disposition home health service (06) | DRG 544 ==
LOC: M ED 13:10 → M ED INP 18:56 → M MS5PR 22:51
PROVIDERS: ADMIT Internal Medicine; ATTEND Internal Medicine
DX: M80.852A Other osteoporosis with current pathological fracture, left femur, initial encounter for fracture (principal); F32.9 Major depressive disorder, single episode, unspecified; F41.9 Anxiety disorder, unspecified; E03.9 Hypothyroidism, unspecified; J44.9 Chronic obstructive pulmonary disease, unspecified; Z79.899 Other long term (current) drug therapy; F10.10 Alcohol abuse, uncomplicated; F17.200 Nicotine dependence, unspecified, uncomplicated; M19.90 Unspecified osteoarthritis, unspecified site

== ENCOUNTER → 2022-04-12 | Outpatient (CLI) | payer MEDICARE, MEDICAID ==
[~2022-04-12] MED LIST changes: -AMIT25TA PO; +AMIT25TA17 PO; +CALC600T17 PO; +CYCL-707 PO; -CYCL10TA PO; +DRIS50003 PO; +DULO1CAP6 PO; +FOLI1TAB11 PO; +NICO21PAT TD; -PARO30TA PO; +PARO30TA65 PO; +ROXI1TAB2 PO; +THIA100TA PO; +VENTAER INH
[2022-04-12 16:13] LABS: GLUCOSE, FASTING 107 MG/DL (70-100)
[2022-04-12 16:14] LABS: ALBUMIN 3.4 GM/DL (3.2-5.2); ALT/SGPT 15 U/L (12-78); BILIRUBIN,TOTAL 0.7 MG/DL (0.2-1.0); BLOOD UREA NITROGEN 8 MG/DL (7-18); CARBON DIOXIDE LEVEL 36 MEQ/L (21-32); CHLORIDE LEVEL 102 MEQ/L (98-107); CHOLESTEROL LEVEL 156 MG/DL (<200); CHOLESTEROL RISK RATIO 1.677 (<5); CREATININE FOR GFR 0.54 MG/DL (0.55-1.30); GLOMERULAR FILTRATION RATE > 60.0 (>39); HDL CHOLESTEROL 93 MG/DL (>40); LDL CHOLESTEROL 54 MG/DL (<100); NON-HDL-C 63 MG/DL; POTASSIUM SERUM 4.1 MEQ/L (3.5-5.1); SODIUM LEVEL 140 MEQ/L (136-145); TOTAL PROTEIN 7.5 GM/DL (6.4-8.2); TRIGLYCERIDES LEVEL 44 MG/DL (<150)
== END ==
LOC: M LAB 14:38
PROVIDERS: ATTEND Nurse Practitioner Family
DX: Z00.00 Encounter for general adult medical examination without abnormal findings (principal)

== ENCOUNTER → 2022-10-28 | Outpatient (REF) | payer MEDICARE, MEDICAID ==
[2022-10-28 17:11] LABS: APPEARANCE, URINE MANUAL CLEAR (CLEAR); COLOR, URINE MANUAL YELLOW (YELLOW)
[2022-10-28 17:12] LABS: BILIRUBIN, URINE MANUAL NEGATIVE (NEGATIVE); BLOOD URINE MANUAL POSITIVE (NEGATIVE); GLUCOSE, URINE (UA) MANUAL NEGATIVE (NEGATIVE); KETONE, URINE MANUAL NEGATIVE (NEGATIVE); LEUKOCYTE ESTERASE, URINE MAN NEGATIVE (NEGATIVE); NITRITE, URINE MANUAL NEGATIVE (NEGATIVE); PROTEIN, URINE MANUAL 1+ mg/dL (NEGATIVE); UROBILINOGEN, URINE MANUAL NORMAL (NORMAL)
[2022-10-28 17:59] LABS: BACTERIA, URINE SMALL AMOUNT; SQUAMOUS EPITHELIAL CELL URINE MOD AMOUNT /hpf (SMALL AMT); TRANSITIONAL EPI CELLS, URINE SMALL AMOUNT /hpf; WBC, URINE 0-1 /hpf (0-3)
[2022-10-28 18:00] LABS: MUCUS, URINE SMALL AMOUNT (NEGATIVE)
== END ==
LOC: M LAB REF 16:32
PROVIDERS: ATTEND Nurse Practitioner Family
DX: Z11.9 Encounter for screening for infectious and parasitic diseases, unspecified (principal)

== ENCOUNTER → 2022-11-18 | Outpatient (REF) | payer MEDICARE, MEDICAID ==
[2022-11-18 17:48] LABS: HEMOGLOBIN A1c 4.6 % (4.0-6.0)
[2022-11-18 18:01] LABS: C REACTIVE PROTEIN QUANTITATIV < 0.40 MG/DL (<1.0); RHEUMATOID FACTOR QUANT 16.3 IU/ML (<14)
[2022-11-18 18:02] LABS: BASO % 0.7 % (0.0-1.0); EOS % 0.5 % (0.0-3.0); HEMATOCRIT 45.7 % (36.0-47.0); LYMPH # 2.8 10^3/uL (1.5-5.0); LYMPH % 45.6 % (24.0-44.0); MEAN CORPUSCULAR HEMOGLOBIN 32.8 pg (27.0-33.0); MEAN CORPUSCULAR HGB CONC 32.8 g/dl (32.0-36.5); MONO # 0.5 10^3/uL (0.0-0.8); MONO % 7.7 % (2.0-8.0); NEUTROPHILS # 2.7 10^3/uL (1.5-8.5); PLATELET COUNT, AUTOMATED 184 10^3/uL (150-450); RED BLOOD COUNT 4.57 10^6/uL (4.00-5.40); WHITE BLOOD COUNT 6.1 10^3/uL (4.0-10.0)
[2022-11-18 18:03] LABS: ALKALINE PHOSPHATASE 105 U/L (46-116); ALT/SGPT 24 U/L (7.0-40); AST/SGOT 43 U/L (<34); BILIRUBIN,TOTAL 0.5 MG/DL (0.3-1.2); BLOOD UREA NITROGEN 8 MG/DL (9-23); CALCIUM LEVEL 9.6 MG/DL (8.3-10.6); CARBON DIOXIDE LEVEL 29 MMOL/L (20-31); CHLORIDE LEVEL 100 MMOL/L (98-107); CREATININE FOR GFR 0.48 MG/DL (0.55-1.30); GLOMERULAR FILTRATION RATE > 60.0 (>39); GLUCOSE, FASTING 75 MG/DL (74-106); POTASSIUM SERUM 4.8 MMOL/L (3.5-5.1); SODIUM LEVEL 135 MMOL/L (136-145); TOTAL PROTEIN 8.2 G/DL (5.7-8.2)
[2022-11-18 18:11] LABS: THYROID STIMULATING HORMONE 3.561 uIU/ML (0.55-4.78)
[2022-11-18 18:15] LABS: TOTAL 25(OH) VITAMIN D 24.8 NG/ML (20.0-100.0)
[2022-11-18 18:29] LABS: ERYTHROCYTE SEDIMENTATION RATE 43 mm/hr (0-30)
[2022-11-18 18:42] LABS: HEPATITIS C VIRUS ABY INDEX 0.1 INDEX (<0.8)
== END ==
LOC: M LAB REF 16:28
PROVIDERS: ATTEND Nurse Practitioner Family
DX: M19.90 Unspecified osteoarthritis, unspecified site (principal); Z11.9 Encounter for screening for infectious and parasitic diseases, unspecified; Z13.228 Encounter for screening for other metabolic disorders

== ENCOUNTER → 2022-12-06 | Outpatient (REF) | payer MEDICARE, MEDICAID | LOC: M LAB REF 15:51 | PROVIDERS: ATTEND Nurse Practitioner Family | DX: R89.9 Unspecified abnormal finding in specimens from other organs, systems and tissues (principal) ==

== ENCOUNTER → 2023-02-04 | Outpatient (CLI) | payer MEDICARE, MEDICAID | LOC: M WHC 12:54 | PROVIDERS: ATTEND Nurse Practitioner Family | DX: M81.0 Age-related osteoporosis without current pathological fracture (principal) ==

== ENCOUNTER → 2023-02-11 | Outpatient (REF) | payer MEDICARE, MEDICAID ==
[2023-02-12 14:14] LABS: APPEARANCE, URINE HAZY (CLEAR); BACTERIA, URINE AUTO NEGATIVE (NEGATIVE); BILIRUBIN, URINE AUTO NEGATIVE (NEGATIVE); BLOOD, URINE BLOOD NEGATIVE (NEGATIVE); COLOR, URINE YELLOW (YELLOW); GLUCOSE, URINE (UA) AUTO NEGATIVE (NEGATIVE); KETONE, URINE AUTO NEGATIVE (NEGATIVE); LEUKOCYTE ESTERASE, URINE AUTO NEGATIVE (NEGATIVE); NITRITE, URINE AUTO NEGATIVE (NEGATIVE); PROTEIN, URINE AUTO NEGATIVE (NEGATIVE); RBC, URINE AUTO 0 /HPF (0-3); SPECIFIC GRAVITY URINE AUTO 1.009 (1.002-1.035); SQUAMOUS EPITHELIAL CELL UR AU 2 /HPF (0-6); UROBILINOGEN, URINE AUTO 0.2 mg/dL (0.0-2.0); WBC, URINE AUTO 0 /HPF (0-3)
[2023-02-12 14:17] LABS: AMPHETAMINES URINE REFLEX NEGATIVE (NEGATIVE); BARBITURATES URINE REFLEX NEGATIVE (NEGATIVE); BENZODIAZEPINES URINE REFLEX NEGATIVE (NEGATIVE); CANNABINOIDS URINE REFLEX NEGATIVE (NEGATIVE); COCAINE METABOLITE URINE REFLE NEGATIVE (NEGATIVE); METHADONE URINE REFLEX NEGATIVE (NEGATIVE); OPIATES URINE REFLEX NEGATIVE (NEGATIVE); PHENCYCLIDINE URINE REFLEX NEGATIVE (NEGATIVE)
== END ==
LOC: M LAB REF 12:20
PROVIDERS: ATTEND Nurse Practitioner Family
DX: G89.29 Other chronic pain (principal); R31.21 Asymptomatic microscopic hematuria

== ENCOUNTER → 2023-04-16 | Outpatient (CLI) | payer MEDICARE, MEDICAID ==
[~2023-04-16] MED LIST changes: +ISOVUE-300 61% 100ML VIAL As Ordered ONE; +LIDOCAINE 1% MDV 20ML VIAL As Ordered ONE; +methylPREDNISolone SUSP 40MG/ML 1ML VIAL (DEPO MEDROL) As Ordered ONE
== END ==
LOC: M RAD 13:24
PROVIDERS: ATTEND Physician Assistant Surgical
DX: M19.011 Primary osteoarthritis, right shoulder (principal); M19.012 Primary osteoarthritis, left shoulder
CPT/HCPCS: 20610; 77002; J1030; Q9967

== ENCOUNTER → 2023-04-24 | Outpatient (REF) | payer MEDICARE ==
[~2023-04-24] MED LIST changes: -ISOVUE-300 61% 100ML VIAL As Ordered ONE; -LIDOCAINE 1% MDV 20ML VIAL As Ordered ONE; -methylPREDNISolone SUSP 40MG/ML 1ML VIAL (DEPO MEDROL) As Ordered ONE
[2023-04-24 16:53] LABS: BASO # 0.1 10^3/uL (0.0-0.2); BASO % 0.9 % (0.0-1.0); EOS # 0.1 10^3/uL (0.0-0.5); EOS % 0.9 % (0.0-3.0); HEMATOCRIT 41.2 % (36.0-47.0); HEMOGLOBIN 14.2 g/dl (12.0-15.5); LYMPH # 2.1 10^3/uL (1.5-5.0); LYMPH % 33.4 % (24.0-44.0); MEAN CORPUSCULAR HEMOGLOBIN 33.8 pg (27.0-33.0); MEAN CORPUSCULAR HGB CONC 34.5 g/dl (32.0-36.5); MEAN CORPUSCULAR VOLUME 98.1 fl (80.0-96.0); MONO # 0.5 10^3/uL (0.0-0.8); MONO % 7.7 % (2.0-8.0); NEUTROPHILS # 3.6 10^3/uL (1.5-8.5); NEUTROPHILS % 56.2 % (36.0-66.0); PLATELET COUNT, AUTOMATED 193 10^3/uL (150-450); WHITE BLOOD COUNT 6.4 10^3/uL (4.0-10.0)
[2023-04-24 17:04] LABS: ERYTHROCYTE SEDIMENTATION RATE 15 mm/hr (0-30)
[2023-04-24 17:24] LABS: ALKALINE PHOSPHATASE 88 U/L (46-116); ALT/SGPT 15 U/L (7.0-40); AST/SGOT 25 U/L (<34); BILIRUBIN,TOTAL 0.7 MG/DL (0.3-1.2); BLOOD UREA NITROGEN 15 MG/DL (9-23); CALCIUM LEVEL 8.5 MG/DL (8.3-10.6); CARBON DIOXIDE LEVEL 27 MMOL/L (20-31); CHLORIDE LEVEL 103 MMOL/L (98-107); CREATININE FOR GFR 0.59 MG/DL (0.55-1.30); GLOMERULAR FILTRATION RATE > 60.0 (>39); GLUCOSE, FASTING 65 MG/DL (74-106); POTASSIUM SERUM 4.3 MMOL/L (3.5-5.1); SODIUM LEVEL 136 MMOL/L (136-145); TOTAL PROTEIN 7.2 G/DL (5.7-8.2)
[2023-04-24 17:25] LABS: C REACTIVE PROTEIN QUANTITATIV < 0.40 MG/DL (<1.0)
[2023-04-24 17:26] LABS: COMPLEMENT C3 93.5 MG/DL (90.0-170.0)
[2023-04-24 17:27] LABS: IMMUNOGLOBULIN A 271.5 MG/DL (40-350); IMMUNOGLOBULIN G 1418 MG/DL (650-1600)
[2023-04-24 17:31] LABS: IMMUNOGLOBULIN M 282.9 MG/DL (50-300)
[2023-04-28 17:08] LABS: COMPLEMENT TOTAL (CH50) 58 U/mL (>41)
== END ==
LOC: M SFHCRHEU 14:44
PROVIDERS: ATTEND Internal Medicine Rheumatology
DX: R76.8 Other specified abnormal immunological findings in serum (principal); M15.0 Primary generalized (osteo)arthritis; Z72.0 Tobacco use

== ENCOUNTER → 2023-05-28 | Outpatient (CLI) | payer MEDICARE, MEDICAID ==
[~2023-05-28] MED LIST changes: +LEXA1TAB PO; +PREG50CA2 PO; +TIZA2TA
== END ==
LOC: M RAD 14:50
PROVIDERS: ATTEND Pain Medicine Interventional Pain Medicine
DX: M25.511 Pain in right shoulder (principal); M25.512 Pain in left shoulder

== ENCOUNTER → 2023-09-11 | Outpatient (REF) | payer MEDICARE, MEDICAID ==
[~2023-09-11] MED LIST changes: -AMIT25TA17 PO; +AMIT25TA19 PO; -PREG50CA2 PO; +PREG50CA3 PO
[2023-09-11 17:33] LABS: BASO % 0.4 % (0.0-1.0); EOS # 0.1 10^3/uL (0.0-0.5); HEMOGLOBIN 14.9 g/dl (12.0-15.5); LYMPH # 2.3 10^3/uL (1.5-5.0); LYMPH % 34.5 % (24.0-44.0); MEAN CORPUSCULAR HEMOGLOBIN 33.9 pg (27.0-33.0); MEAN CORPUSCULAR HGB CONC 34.7 g/dl (32.0-36.5); MEAN CORPUSCULAR VOLUME 97.7 fl (80.0-96.0); MONO # 0.7 10^3/uL (0.0-0.8); MONO % 10.2 % (2.0-8.0); NEUTROPHILS # 3.6 10^3/uL (1.5-8.5); NEUTROPHILS % 53.5 % (36.0-66.0); PLATELET COUNT, AUTOMATED 215 10^3/uL (150-450); WHITE BLOOD COUNT 6.7 10^3/uL (4.0-10.0)
[2023-09-11 17:56] LABS: BLOOD UREA NITROGEN 8 MG/DL (9-23); CALCIUM LEVEL 9.7 MG/DL (8.3-10.6); CARBON DIOXIDE LEVEL 26 MMOL/L (20-31); CHLORIDE LEVEL 101 MMOL/L (98-107); CREATININE FOR GFR 0.47 MG/DL (0.55-1.30); GLOMERULAR FILTRATION RATE > 60.0 (>39); GLUCOSE, FASTING 60 MG/DL (74-106); POTASSIUM SERUM 4.6 MMOL/L (3.5-5.1); SODIUM LEVEL 134 MMOL/L (136-145)
== END ==
LOC: M LAB REF 16:39
PROVIDERS: ATTEND Nurse Practitioner Family
DX: R19.7 Diarrhea, unspecified (principal)

== ENCOUNTER → 2024-02-04 | Outpatient (REF) | payer MEDICARE ==
[2024-02-04 15:49] LABS: APPEARANCE, URINE HAZY (CLEAR); BACTERIA, URINE AUTO NEGATIVE (NEGATIVE); BILIRUBIN, URINE AUTO NEGATIVE (NEGATIVE); BLOOD, URINE BLOOD NEGATIVE (NEGATIVE); COLOR, URINE YELLOW (YELLOW); GLUCOSE, URINE (UA) AUTO NEGATIVE (NEGATIVE); KETONE, URINE AUTO NEGATIVE (NEGATIVE); LEUKOCYTE ESTERASE, URINE AUTO NEGATIVE (NEGATIVE); MUCUS, URINE SMALL (NEGATIVE); NITRITE, URINE AUTO NEGATIVE (NEGATIVE); PROTEIN, URINE AUTO 1+ mg/dL (NEGATIVE); RBC, URINE AUTO 1 /HPF (0-3); SPECIFIC GRAVITY URINE AUTO 1.021 (1.002-1.035); SQUAMOUS EPITHELIAL CELL UR AU 10 /HPF (0-6); UROBILINOGEN, URINE AUTO 0.2 mg/dL (0.0-2.0); WBC, URINE AUTO 2 /HPF (0-3)
[2024-02-04 15:52] LABS: BASO # 0.1 10^3/uL (0.0-0.2); BASO % 0.9 % (0.0-1.0); EOS # 0.1 10^3/uL (0.0-0.5); EOS % 1.2 % (0.0-3.0); HEMATOCRIT 44.6 % (36.0-47.0); HEMOGLOBIN 15.2 g/dl (12.0-15.5); LYMPH # 2.1 10^3/uL (1.5-5.0); LYMPH % 30.5 % (24.0-44.0); MEAN CORPUSCULAR HEMOGLOBIN 33.7 pg (27.0-33.0); MEAN CORPUSCULAR HGB CONC 34.1 g/dl (32.0-36.5); MEAN CORPUSCULAR VOLUME 98.9 fl (80.0-96.0); MONO # 0.6 10^3/uL (0.0-0.8); MONO % 8.5 % (2.0-8.0); NEUTROPHILS % 58.3 % (36.0-66.0); PLATELET COUNT, AUTOMATED 237 10^3/uL (150-450); RED BLOOD COUNT 4.51 10^6/uL (4.00-5.40); WHITE BLOOD COUNT 6.9 10^3/uL (4.0-10.0)
[2024-02-04 15:57] LABS: ERYTHROCYTE SEDIMENTATION RATE 28 mm/hr (0-30)
[2024-02-04 16:21] LABS: CREATININE,RANDOM URINE 89.2 MG/DL
[2024-02-04 16:24] LABS: C REACTIVE PROTEIN QUANTITATIV < 0.40 MG/DL (<1.0)
[2024-02-04 17:09] LABS: COMPLEMENT C3 119.4 MG/DL (90.0-170.0); COMPLEMENT C4 20.2 MG/DL (12-36)
[2024-02-04 17:17] LABS: ALKALINE PHOSPHATASE 104 U/L (46-116); ALT/SGPT 17 U/L (7.0-40); AST/SGOT 23 U/L (<34); BILIRUBIN,TOTAL 0.5 MG/DL (0.3-1.2); BLOOD UREA NITROGEN 15 MG/DL (9-23); CALCIUM LEVEL 9.5 MG/DL (8.3-10.6); CARBON DIOXIDE LEVEL 29 MMOL/L (20-31); CHLORIDE LEVEL 104 MMOL/L (98-107); CREATININE FOR GFR 0.52 MG/DL (0.55-1.30); GLOMERULAR FILTRATION RATE > 60.0 (>39); GLUCOSE, FASTING 84 MG/DL (74-106); POTASSIUM SERUM 4.1 MMOL/L (3.5-5.1); SODIUM LEVEL 136 MMOL/L (136-145); TOTAL PROTEIN 7.4 G/DL (5.7-8.2)
== END ==
LOC: M SFHCADAM 12:50
PROVIDERS: ATTEND Internal Medicine Rheumatology
DX: R76.8 Other specified abnormal immunological findings in serum (principal); M15.0 Primary generalized (osteo)arthritis; Z72.0 Tobacco use; R76.0 Raised antibody titer

== ENCOUNTER → 2024-09-06 | Outpatient (REF) | payer MEDICARE, MEDICAID ==
[2024-09-06 18:19] LABS: BASO % 0.7 % (0.0-1.0); EOS # 0.1 10^3/uL (0.0-0.5); EOS % 1.7 % (0.0-3.0); HEMATOCRIT 46.5 % (36.0-47.0); HEMOGLOBIN 15.2 g/dl (12.0-15.5); LYMPH # 1.4 10^3/uL (1.5-5.0); LYMPH % 26.7 % (24.0-44.0); MEAN CORPUSCULAR HEMOGLOBIN 32.3 pg (27.0-33.0); MEAN CORPUSCULAR HGB CONC 32.7 g/dl (32.0-36.5); MEAN CORPUSCULAR VOLUME 98.9 fl (80.0-96.0); MONO # 0.6 10^3/uL (0.0-0.8); MONO % 10.7 % (2.0-8.0); NEUTROPHILS # 3.2 10^3/uL (1.5-8.5); NEUTROPHILS % 59.5 % (36.0-66.0); PLATELET COUNT, AUTOMATED 227 10^3/uL (150-450); WHITE BLOOD COUNT 5.4 10^3/uL (4.0-10.0)
[2024-09-06 18:43] LABS: ALKALINE PHOSPHATASE 106 U/L (35-104); ALT/SGPT 15 U/L (7.0-40); AST/SGOT 30 U/L (<34); BILIRUBIN,TOTAL 0.5 MG/DL (0.3-1.2); BLOOD UREA NITROGEN 13 MG/DL (9-23); CALCIUM LEVEL 9.8 MG/DL (8.3-10.6); CARBON DIOXIDE LEVEL 29 MMOL/L (20-31); CHLORIDE LEVEL 102 MMOL/L (98-107); CHOLESTEROL LEVEL 205 MG/DL (<200); CHOLESTEROL RISK RATIO 2.15 (<5); CREATININE FOR GFR 0.68 MG/DL (0.55-1.30); GLOMERULAR FILTRATION RATE > 60.0 (>39); GLUCOSE, FASTING 109 MG/DL (74-106); POTASSIUM SERUM 4.2 MMOL/L (3.5-5.1); SODIUM LEVEL 137 MMOL/L (136-145); TOTAL PROTEIN 7.7 G/DL (5.7-8.2); TRIGLYCERIDES LEVEL 80 MG/DL (<150)
[2024-09-06 18:45] LABS: THYROID STIMULATING HORMONE 4.569 uIU/ML (0.55-4.78)
[2024-09-06 19:01] LABS: HEMOGLOBIN A1c 4.8 % (4.0-6.0)
== END ==
LOC: M LABDRWAD 17:38
PROVIDERS: ATTEND Nurse Practitioner Family
DX: E03.9 Hypothyroidism, unspecified (principal); E66.3 Overweight

== ENCOUNTER → 2025-02-03 | Outpatient (REF) | payer MEDICARE, MEDICAID ==
[2025-02-03 18:47] LABS: BASO % 0.6 % (0.0-1.0); EOS % 0.6 % (0.0-3.0); HEMATOCRIT 45.7 % (36.0-47.0); HEMOGLOBIN 15.1 g/dl (12.0-15.5); LYMPH # 1.8 10^3/uL (1.5-5.0); LYMPH % 26.8 % (24.0-44.0); MEAN CORPUSCULAR VOLUME 99.8 fl (80.0-96.0); MONO # 0.5 10^3/uL (0.0-0.8); MONO % 7.4 % (2.0-8.0); NEUTROPHILS # 4.4 10^3/uL (1.5-8.5); NEUTROPHILS % 64.2 % (36.0-66.0); PLATELET COUNT, AUTOMATED 240 10^3/uL (150-450); RED BLOOD COUNT 4.58 10^6/uL (4.00-5.40); WHITE BLOOD COUNT 6.9 10^3/uL (4.0-10.0)
[2025-02-03 19:10] LABS: ALBUMIN 4.2 G/DL (3.2-5.2); ALKALINE PHOSPHATASE 108 U/L (35-104); ALT/SGPT 20 U/L (7.0-40); AST/SGOT 32 U/L (<34); BILIRUBIN,DIRECT 0.2 MG/DL (<0.4); BILIRUBIN,TOTAL 0.5 MG/DL (0.3-1.2); BLOOD UREA NITROGEN 8 MG/DL (9-23); CALCIUM LEVEL 10.1 MG/DL (8.3-10.6); CARBON DIOXIDE LEVEL 32 MMOL/L (20-31); CHLORIDE LEVEL 96 MMOL/L (98-107); CHOLESTEROL LEVEL 181 MG/DL (<200); CHOLESTEROL RISK RATIO 1.72 (<5); CREATININE FOR GFR 0.45 MG/DL (0.55-1.30); GLOMERULAR FILTRATION RATE > 60.0 (>39); GLUCOSE, FASTING 90 MG/DL (74-106); LDL CHOLESTEROL 58.8 MG/DL (<100); POTASSIUM SERUM 4.3 MMOL/L (3.5-5.1); SODIUM LEVEL 136 MMOL/L (136-145); TOTAL PROTEIN 7.9 G/DL (5.7-8.2); TRIGLYCERIDES LEVEL 86 MG/DL (<150)
== END ==
LOC: M LAB REF 17:28
PROVIDERS: ATTEND Nurse Practitioner Family
DX: Z01.818 Encounter for other preprocedural examination (principal); R41.3 Other amnesia; Z79.899 Other long term (current) drug therapy

== ENCOUNTER → 2025-03-03 | Day surgery (SDC) | payer MEDICARE, MEDICAID ==
[~2025-03-03] VITALS: Ht 137.2 cm; Wt 49.4 kg
[~2025-03-03] MED LIST changes: +CELE100C PO; +EQL50TAB2 PO; +MIDAZOLAM INJ 2MG/2ML VIAL As Ordered ONE; +OMEGCAP9 PO; +PHENYLEPHRINE 10% OPHTH SOL 5ML OS PRN; +THERTAB52 PO; +fentaNYL 100 MCG/2 ML INJECTION As Ordered ONE
[2025-03-03] MEDS: BSS IRRIG/VANCO(10MG)/TOBRA(5MG)/EPINEPH(1:1000-0.5CC)500ML BAG-ORONLY As Ordered ONE (06:50)
[2025-03-03] MEDS: OFLOXACIN 0.3 % (OCUFLOX) OPTH SOL 5ML OS ONE (09:38)
[2025-03-03] MEDS: LIDOCAINE 3.5 % 1ML OPHTH TOPICAL GEL OU ONE (09:39)
[2025-03-03] MEDS: TROPICAMIDE 1% OPHTH SOLN 15ML OS SCH (09:39)
[2025-03-03] MEDS: PHENYLEPHRINE 2.5% OPHTH SOL 2ML OS SCH (09:39)
[2025-03-03] MEDS: CYCLOPENTOLATE 1% OPHTH SOLN 2ML BTL OS SCH (09:39)
[2025-03-03] MEDS: LIDOCAINE 1% SDV 5ML VIAL As Ordered ONE (10:39)
[2025-03-03] MEDS: CEFUROXIME 1MG/0.1ML INTRACAMERAL INJ As Ordered ONE (10:39)
[2025-03-03 10:55] VITALS: BP 134/88; TEMP 98.2; O2SAT 95
== END | disposition home or self-care (01) ==
LOC: M SDC 08:52
PROVIDERS: ATTEND Ophthalmology
DX: H25.12 Age-related nuclear cataract, left eye (principal); I10 Essential (primary) hypertension; J44.9 Chronic obstructive pulmonary disease, unspecified; E03.9 Hypothyroidism, unspecified; E04.1 Nontoxic single thyroid nodule; Z86.73 Personal history of transient ischemic attack (TIA), and cerebral infarction without residual deficits; Z79.899 Other long term (current) drug therapy; Z88.8 Allergy status to other drugs, medicaments and biological substances; Z91.040 Latex allergy status; F17.210 Nicotine dependence, cigarettes, uncomplicated; Z90.710 Acquired absence of both cervix and uterus; F41.9 Anxiety disorder, unspecified; F32.A Depression, unspecified
CPT/HCPCS: 66984; J0697; J2250; J3010; V2632

== ENCOUNTER → 2025-09-02 | Outpatient (REF) | payer MEDICARE, MEDICAID ==
[~2025-09-02] MED LIST changes: +ANOR1AER PO; +ATOR1TAB19 PO; -EQL50TAB2 PO; +FLON1SPR NARES; +LASI40TA9 PO; +LORA-1041 PO; -MIDAZOLAM INJ 2MG/2ML VIAL As Ordered ONE; +MOXI1TAB PO; +MUCI1TAB16 PO; -PHENYLEPHRINE 10% OPHTH SOL 5ML OS PRN; +POTA-298 PO; +PRED10TA2 PO; +PREG75CA3 PO; +VITA1TAB82 PO; -fentaNYL 100 MCG/2 ML INJECTION As Ordered ONE
[2025-09-02 17:10] LABS: CALCIUM LEVEL 9.0 MG/DL (8.3-10.6); CARBON DIOXIDE LEVEL 24 MMOL/L (20-31); CHLORIDE LEVEL 107 MMOL/L (98-107); CREATININE FOR GFR 0.50 MG/DL (0.55-1.30); GLOMERULAR FILTRATION RATE > 90.0 (>39); POTASSIUM SERUM 4.7 MMOL/L (3.5-5.1); SODIUM LEVEL 141 MMOL/L (136-145)
== END ==
LOC: M LAB REF 16:22
PROVIDERS: ATTEND Nurse Practitioner Family
DX: J18.9 Pneumonia, unspecified organism (principal); J44.9 Chronic obstructive pulmonary disease, unspecified; R60.0 Localized edema